=== PATIENT | female | born 1935 | race Caucasian/White ===

== ENCOUNTER 2018-07-19 22:04 | Emergency (ER) | payer MEDICARE, OTHER ==
[~2018-07-19] VITALS: Ht 157.5 cm; Wt 59.9 kg
[~2018-07-19 22:04] MED LIST: ASPIR 8181 MG PO; FISH OIL 1,001000 M2 PO; MAGOX 400400 MG PO; PRESERVISION A1 EAC2 PO; THYROID MEDICATION
[2018-07-19] MEDS ORDERED: ARMOUR THYROID60 M1 PO (22:20)
[2018-07-19 22:42] LABS: ABSOLUTE BASOPHILS 0.1 thou/uL (0.0-0.2); ABSOLUTE EOSINOPHILS 0.2 thou/uL (0.0-0.7); ABSOLUTE LYMPHOCYTES 2.1 thou/uL (0.8-5.3); ABSOLUTE MONOCYTES 0.4 thou/uL (0.0-1.2); ABSOLUTE NEUTROPHILS 3.1 thou/uL (1.6-8.1); BASOPHILS 0.9 %; EOSINOPHILS 3.1 %; HEMATOCRIT 36.9 % (37.0-47.0); HEMOGLOBIN 12.3 gm/dL (12.0-15.0); LYMPHOCYTES 35.8 %; MCH 29.5 pg (26.0-34.0); MCHC 33.4 g/dL (28.0-37.0); MCV 88.2 fL (80.0-100.0); MONOCYTES 7.6 %; MPV 8.8 fl. (7.2-11.1); NUCLEATED RBCS 0 /100WBC; PLATELET COUNT* 218 thou/uL (150-400); POLYS 52.6 %; RBC 4.19 mil/uL (4.20-5.00); WBC 5.9 thou/uL (4.0-11.0)
[2018-07-19 22:47] LABS: ANION GAP 7 mmol/L (7-16); BUN 18 mg/dL (7-18); CALCIUM 8.6 mg/dL (8.5-10.1); CHLORIDE 109 mmol/L (98-107); CO2 30 mmol/L (21-32); CREATININE 0.6 mg/dL (0.6-1.3); GLUCOSE 126 mg/dL (70-99); SODIUM 146 mmol/L (136-145)
[2018-07-19 22:56] LABS: ALBUMIN 3.6 g/dL (3.4-5.0); ALKALINE PHOSPHATASE 74 U/L (46-116); SGOT 20 U/L (15-37); SGPT 22 U/L (30-65); TOTAL BILIRUBIN 0.2 mg/dL (<0.1-1.0); TROPONIN-I LEVEL <0.06 ng/mL (<0.06)
[2018-07-19] MEDS ORDERED: ANTIVERT25 MG PO (23:57)
[2018-07-20 00:35] VITALS: BP 141/61
--- NOTE | 2018-07-20 17:14 | EKG ---
[place] [address] ELECTROCARDIOGRAM REPORT Name: DRE MCMAHON [facility]Deonna[facility] [id number] Admission: 07/19/18 Attend Phys: Discharge: 07/20/18 Date of : 33 Report #: [id number] THIS REPORT FOR: //name// [facility] ED Test Date: 2018-07-19 Test Time: 23:11:18 Pat Name: DRE MCMAHON Department: Room: Gender: F Restaurant Area Director: : [id number] Requested By: Lisa Watts Order Number: [id number] MD: Greg Birch Measurements Intervals [place] Rate: 58 P: 48 MA: 157 QRS: 26 QRSD: 99 T: 43 QT: 438 QTc: 431 Interpretive Statements Sinus rhythm No previous ECG available for comparison Electronically Signed On 07-20-2018 17:13:56 CDT by Greg Birch [email or web address] <ELECTRONICALLY SIGNED> By: Greg Birch MD, [facility] 07/20/18 1713 2311 2311 Greg Birch MD, FACC /EPI
== END 2018-07-20 00:36 | disposition home or self-care (01) ==
LOC: M.ERS 22:04
PROVIDERS: Nurse Practitioner
DX: R42 Dizziness and giddiness (principal); Z88.1 Allergy status to other antibiotic agents

== ENCOUNTER → 2020-02-26 | Outpatient (CLI) | payer MEDICARE, OTHER ==
[~2020-02-26] MED LIST changes: +ANTIVERT25 MG PO; +ARMOUR THYROID60 M1 PO
[2020-02-26 10:36] LABS: ABSOLUTE EOSINOPHILS 0.1 thou/uL (0.0-0.7); ABSOLUTE LYMPHOCYTES 1.5 thou/uL (0.8-5.3); ABSOLUTE MONOCYTES 0.4 thou/uL (0.0-1.2); ABSOLUTE NEUTROPHILS 4.6 thou/uL (1.6-8.1); BASOPHILS 0.5 %; HEMATOCRIT 38.8 % (37.0-47.0); HEMOGLOBIN 12.9 gm/dL (12.0-15.0); LYMPHOCYTES 22.3 %; MCH 29.6 pg (26.0-34.0); MCHC 33.3 g/dL (28.0-37.0); MCV 88.7 fL (80.0-100.0); MONOCYTES 5.7 %; MPV 8.8 fl. (7.2-11.1); NUCLEATED RBCS 0 /100WBC; PLATELET COUNT* 213 thou/uL (150-400); POLYS 70.5 %; RBC 4.37 mil/uL (4.20-5.00); RDW-CV 14.3 % (10.5-14.5); WBC 6.6 thou/uL (4.0-11.0)
[2020-02-26 10:38] LABS: URINE BILIRUBIN NEGATIVE (Negative); URINE BLOOD NEGATIVE (Negative); URINE CLARITY CLEAR; URINE COLOR YELLOW; URINE GLUCOSE-RANDOM NEGATIVE (Negative); URINE KETONES 1+ (Negative); URINE LEUKOCYTES-REFLEX NEGATIVE (Negative); URINE NITRITE-REFLEX NEGATIVE (Negative); URINE PROTEIN NEGATIVE (Negative); URINE SPECIFIC GRAVITY 1.025 (1.005-1.030)
[2020-02-26 10:55] LABS: CALCIUM 9.1 mg/dL (8.5-10.1); CREATININE 0.7 mg/dL (0.6-1.3); POTASSIUM 3.6 mmol/L (3.5-5.1); TOTAL BILIRUBIN 0.5 mg/dL (<0.1-1.0); TOTAL PROTEIN 7.9 g/dL (6.4-8.2)
[2020-02-27 02:07] LABS: GLYCOHEMOGLOBIN (HGB A1C) 5.5 % (4.8-5.6)
== END ==
LOC: M.LAB 10:11 → M.CT 11:30
PROVIDERS: ATTEND Family Medicine
DX: N28.1 Cyst of kidney, acquired (principal); K92.1 Melena; M43.26 Fusion of spine, lumbar region; R91.1 Solitary pulmonary nodule; N75.0 Cyst of Bartholin's gland; K31.89 Other diseases of stomach and duodenum; R73.01 Impaired fasting glucose; E03.9 Hypothyroidism, unspecified

== ENCOUNTER 2020-07-17 18:48 | Emergency (ER) | payer MEDICARE, OTHER ==
[~2020-07-17] VITALS: Ht 157.5 cm; Wt 52.6 kg
[2020-07-17] MEDS ORDERED: ZESTRIL10 MG (19:08)
[2020-07-17 21:21] VITALS: BP 169/85
== END 2020-07-17 21:22 | disposition home or self-care (01) ==
LOC: M.ERS 18:48
DX: H11.31 Conjunctival hemorrhage, right eye (principal); Z88.1 Allergy status to other antibiotic agents; Z88.8 Allergy status to other drugs, medicaments and biological substances; Z98.890 Other specified postprocedural states